=== PATIENT | male | born 1960 | race Caucasian/White ===

== ENCOUNTER 2020-06-27 13:58 | Inpatient (IN) | payer BC ==
[~2020-06-27] VITALS: Ht 213.4 cm; Wt 179.6 kg
--- NOTE | 2020-06-27 14:20 | NUR ---
IV LINE ESTABLISHED. BLOOD DRAWN ADN SENT TO LAB
[2020-06-27] MEDS ORDERED: AMLO10TA4 PO (14:35)
[2020-06-27] MEDS ORDERED: GLIM4TAB37 PO (14:35)
[2020-06-27] MEDS ORDERED: ATEN50TA PO (14:35)
[2020-06-27] MEDS ORDERED: HYDR25TA4 PO (14:35)
[2020-06-27] MEDS ORDERED: LOSA100T31 PO (14:35)
[2020-06-27] MEDS ORDERED: ASPI-1420 PO (14:35)
[2020-06-27] MEDS ORDERED: METF-442 PO (14:35)
[2020-06-27 14:37] LABS: BASOPHILS # (AUTO) 0.1 /CMM (0.0-0.2); BASOPHILS % (AUTO) 0.7 % (0.0-2.0); EOSINOPHILS % (AUTO) 2.1 % (0.0-6.0); HEMATOCRIT 41 % (39-51); HEMOGLOBIN 13.4 g/dL (13.5-17.5); LYMPHOCYTES # (AUTO) 3.5 /CMM (0.8-4.8); LYMPHOCYTES % (AUTO) 41.8 % (20.0-44.0); MEAN CORPUSCULAR HGB CONC 33 g/dl (31.0-36.0); MEAN CORPUSCULAR VOLUME 84 fL (80-96); MONOCYTES # (AUTO) 0.6 /CMM (0.1-1.30); MONOCYTES % (AUTO) 7.7 % (2.0-12.0); NEUTROPHILS % (AUTO) 47.7 % (43.0-81.0); PLATELET COUNT (AUTO) 293 /CMM (150-450); RED BLOOD CELL COUNT(AUTO) 4.91 MIL/uL (4.5-6.0); WHITE BLOOD COUNT (AUTO) 8.4 K/uL (4.3-11.0)
[2020-06-27 14:44] LABS: CALCIUM, SERUM 9.1 mg/dL (8.5-10.1); CARBON DIOXIDE 26 mmol/L (21-32); CHLORIDE 100 mmol/L (98-107); GLUCOSE 141 mg/dL (74-106); POTASSIUM 4.1 mmol/L (3.5-5.1); SODIUM SERUM 137 mmol/L (136-145); UREA NITROGEN, BLOOD 8 mg/dL (7-18)
[2020-06-27 14:57] LABS: B-TYPE NATRIURETIC PEPTIDE 11 PG/ML (0-125)
--- NOTE | 2020-06-27 16:23 | NUR ---
COVID SWAB SENT. PATIENT RESTING, NO DISTRESS NOTED.
[2020-06-27] MEDS ORDERED: ACETAMINOPHEN 325 MG TABLET PO PRN (19:00)
[2020-06-27] MEDS ORDERED: Z GUARD REMEDY 2 OZ OINT TP PRN (19:00)
[2020-06-27] MEDS ORDERED: MAG HYDROX/AL HYDROX/SIMETH 30 ML UDC PO PRN (19:00)
[2020-06-27] MEDS ORDERED: MAGNESIUM HYDROXIDE 30 ML UDC PO PRN (19:00)
[2020-06-27] MEDS ORDERED: ZOLPIDEM TARTRATE 5 MG TABLET PO PRN (19:00)
[2020-06-27] MEDS ORDERED: HYDROCODONE/APAP 5/325MG TABLET PO PRN (19:00)
[2020-06-27] MEDS ORDERED: ASPIRIN EC 81 MG TABLET.DR PO ONE (19:00)
[2020-06-27] MEDS ORDERED: ONDANSETRON HCL/PF 4 MG/2 ML VIAL IVP PRN (19:00)
--- NOTE | 2020-06-27 20:01 | NUR ---
ROOM ASSIGNMENT IS 304-1
--- NOTE | 2020-06-27 20:24 | NUR ---
ATTEMPTED TO GIVE REPORT. NURSE NOT AVAILABLE FOR REPORT
--- NOTE | 2020-06-27 20:37 | NUR ---
REPORT GIVEN TO JOVAN GAN FOR MALENA
[2020-06-27] MEDS: ENOXAPARIN SODIUM 40 MG/0.4 ML DISP.SYRIN SQ SCH ×2 (21:00→22:50)
[2020-06-27 21:30] VITALS: BP 151/95
--- NOTE | 2020-06-27 21:30 | NUR ---
LATHE PULLER NOTES PATIENT ARRIVED ON FLOOR AT 2130. PATIENT IS IN BED, AWAKE, ALERT AND ORIENTED X 4. BREATHING EVEN AND UNLABORED ON ROOM AIR. SHOWS NO SIGNS OF ACUTE RESPIRATORY DISTRESS, NO ACUTE PAIN. TELE MONITOR SR. IV ON RAC 18G ITS CLEAN DRY AND INTACT. SHOWS NO SIGNS OF INFILTRATION, NO REDNESS. PT REFUSED SKIN ASSESSMENT, DOES NOT WANT TO CHANGE INTO HOSPITAL GOWN. BELONGINGS CHECKLIST COMPLETED, AND ORIENTED TO STAFF AND ROOM. SAFETY PRECAUTIONS IN PLACE. BED IN LOWEST POSITION, LOCKED, AND CALL LIGHT KEPT WITHIN REACH. WILL CONTINUE TO MONITOR.
--- NOTE | 2020-06-27 21:33 | NUR ---
PT TRANSFERRED TO ROOM VIA ACLS PROTOCOL
[2020-06-27] MEDS ORDERED: LOVA40TA2 PO (22:29)
--- NOTE | 2020-06-27 22:50 | NUR ---
SINGING WAITER OR WAITRESS NOTES PATIENT REFUSED LOVENOX. EDUCATED PATIENT ON RISK AND BENEFITS OF MEDICATION. OPENED MEDICATIONS AND REQUIRED WASTING, MIGUEL ALDANA WITNESSED. WILL CONTINUE TO MONITOR.
[2020-06-27] MEDS ORDERED: INSU100V7 SQ (22:59)
[2020-06-27] MEDS ORDERED: DEXTROSE 50%-WATER 50 ML DISP.SYRIN IV PRN (23:30)
[2020-06-27] MEDS ORDERED: GLIMEPIRIDE 4 MG TABLET PO ONE (23:30)
[2020-06-27] MEDS ORDERED: ATENOLOL 50 MG TABLET PO ONE (23:30)
[2020-06-27] MEDS ORDERED: INSULIN REGULAR, HUMAN 100 UNIT/ML 3 ML VIAL SQ PRN (23:30)
[2020-06-27] MEDS ORDERED: METFORMIN 500 MG TABLET PO ONE (23:30)
--- NOTE | 2020-06-27 23:40 | NUR ---
SCENE AND LIGHTING DESIGN LECTURER NOTES CALLED [facility] FOR MED RECON, NOT AVAILABE AT THE TIME. SAID TO PUT IN ONE TIME ORDER FOR PT'S NIGHT TIME MEDICATION. PUT ONE TIME ORDER FOR ATENELOL, GLIMEPIDE, AND METFORMIN. PT RECEIVED MEDICATIONS. ALSO GOT ORDER FOR CPAP AND LANTUS. WILL CONTINUE TO MONITOR.
[2020-06-28] VITALS: BP 151/95
[2020-06-28 02:25] VITALS: BP 151/95
[2020-06-28 04:00] VITALS: BP 164/99
--- NOTE | 2020-06-28 04:30 | NUR ---
[facility] NOTES CONTACT MD FOR PRN BP MEDICATION. MD ASKED TO TAKE MANUAL BP, RESULT WAS 155/80. NO MEDICATION WAS GIVEN. WILL CONTINUE TO MONITOR.
[2020-06-28 06:47] LABS: BASOPHILS % (AUTO) 0.3 % (0.0-2.0); EOSINOPHILS % (AUTO) 3.5 % (0.0-6.0); HEMATOCRIT 39 % (39-51); HEMOGLOBIN 12.6 g/dL (13.5-17.5); LYMPHOCYTES # (AUTO) 3.3 /CMM (0.8-4.8); LYMPHOCYTES % (AUTO) 37.6 % (20.0-44.0); MEAN CORPUSCULAR HGB CONC 32 g/dl (31.0-36.0); MEAN CORPUSCULAR VOLUME 83 fL (80-96); MONOCYTES # (AUTO) 1.1 /CMM (0.1-1.30); NEUTROPHILS # (AUTO) 4.1 /CMM (1.8-8.9); NEUTROPHILS % (AUTO) 46.6 % (43.0-81.0); PLATELET COUNT (AUTO) 296 /CMM (150-450); RED BLOOD CELL COUNT(AUTO) 4.67 MIL/uL (4.5-6.0); WHITE BLOOD COUNT (AUTO) 8.8 K/uL (4.3-11.0)
[2020-06-28] MEDS: BLOOD SUGAR DIAGNOSTIC 1 EACH STRIP IN SCH ×2 (06:57→12:00)
--- NOTE | 2020-06-28 07:00 | NUR ---
SCHOOL NURSE NOTES PATIENT IS SITTING AT EDGE OF BED, AWAKE, ALERT AND ORIENTED X 4. BREATHING EVEN AND UNLABORED ON ROOM AIR. SHOWS NO SIGNS OF ACUTE RESPIRATORY DISTRESS, NO ACUTE PAIN. TELE MONITOR SR. IV ON RAC 18G ITS CLEAN DRY AND INTACT. SHOWS NO SIGNS OF INFILTRATION, NO REDNESS. ALL DUE MEDICATIONS GIVEN. ALL NEEDS ATTENDED TO. SAFETY PRECAUTIONS IN PLACE. BED IN LOWEST POSITION, LOCKED, AND CALL LIGHT KEPT WITHIN REACH. WILL ENDORSE TO ONCOMING NURSE.
[2020-06-28 07:05] LABS: CALCIUM, SERUM 9.4 mg/dL (8.5-10.1); CREATININE 0.9 mg/dL (0.6-1.3); MAGNESIUM 2.1 mg/dL (1.8-2.4); PHOSPHORUS 4.2 mg/dL (2.5-4.9); POTASSIUM 3.7 mmol/L (3.5-5.1)
[2020-06-28 07:09] LABS: THYROID STIMULATING HORMONE 1.419 uIU/mL (0.358-3.74)
[2020-06-28] MEDS ORDERED: INSULIN GLARGINE, 100 UNIT/ML CARTRIDGE SQ SCH ×2 (07:30→09:00)
[2020-06-28] MEDS ORDERED: PANTOPRAZOLE 40 MG TABLET.DR PO SCH (07:30)
--- NOTE | 2020-06-28 07:30 | NUR ---
MEDICAL DEVICE NOTES CONTACTED AND LEFT MESSAGE FOR DR. CARRANZA TO UPDATE REGARDING ADMISSION IN HOSPITAL. DR. ROUSE [phone]
--- NOTE | 2020-06-28 07:35 | NUR ---
ms rn received on bed, awake,alert,oriented x4,not in any form of distress,respirations even and unlabored,no sob noted, lungs are diminish,abdomen soft,positive bowel sounds,denies pain at this time,all needs attended.
[2020-06-28 08:00] VITALS: BP 147/82
--- NOTE | 2020-06-28 10:00 | NUR ---
ms rn was seen by dr. radha marie/ orders made and carried out.
--- NOTE | 2020-06-28 11:00 | NUR ---
ms rocha was seen by dr. groves w/ isabel for cta.
[2020-06-28 12:00] VITALS: BP 149/74
--- NOTE | 2020-06-28 12:00 | NUR ---
ms rn refused to take bs - patient went down for the procedure.
[2020-06-28] MEDS ORDERED: IOHEXOL-350 100 ML VIAL IV ONE (12:55)
[2020-06-28] MEDS ORDERED: CT SWABBABLE VALVE TRANS SET 1 EA INFUS.SET MC ONE (12:55)
[2020-06-28] MEDS ORDERED: IV NS 0.9% 250 ML IV ONE (12:55)
[2020-06-28] MEDS: METOPROLOL TARTRATE INJ 5 MG/5 ML AMPUL IVP PRN ×10 (13:05→13:50)
[2020-06-28] MEDS ORDERED: NITROGLYCERIN 0.4 MG/TAB BOTTLE ONE (13:06)
[2020-06-28] MEDS ORDERED: METOPROLOL TARTRATE INJ 5 MG/5 ML AMPUL ONE ×3 (13:07→13:34)
[2020-06-28] MEDS ORDERED: NITROGLYCERIN 0.4 MG/TAB BOTTLE SL ONE ×2 (13:30→14:30)
--- NOTE | 2020-06-28 13:30 | NUR ---
ms rn patient came back from [facility], ate lunch already, refused to check sugar because already ate.
[2020-06-28] MEDS ORDERED: PANT40TA2 PO (14:25)
[2020-06-28] MEDS ORDERED: ASPIRIN EC 81 MG TABLET.DR PO SCH (14:30)
[2020-06-28] MEDS ORDERED: HYDROCHLOROTHIAZIDE 25 MG TABLET PO SCH (14:30)
[2020-06-28] MEDS ORDERED: GLIMEPIRIDE 4 MG TABLET PO SCH (14:30)
[2020-06-28] MEDS ORDERED: ATENOLOL 50 MG TABLET PO SCH (14:30)
[2020-06-28] MEDS ORDERED: LOSARTAN POTASSIUM 50 MG TABLET PO SCH (14:30)
--- NOTE | 2020-06-28 15:00 | NUR ---
ms rn refusing due meds, patient will take his home meds at home, ,wants to go home now.
[2020-06-28 16:00] VITALS: BP 121/80
--- NOTE | 2020-06-28 16:00 | NUR ---
ms rn texted dr. groves, needs to see cta results first.
--- NOTE | 2020-06-28 17:00 | NUR ---
ms rn refusing due meds, will take meds at home. patient's rx fax to pharmacy.
--- NOTE | 2020-06-28 17:20 | NUR ---
ms pattern wheel maker instructions given, patient went home.
[2020-06-29] MEDS ORDERED: INSULIN GLARGINE, 100 UNIT/ML CARTRIDGE SQ SCH (07:30)
[2020-06-29] MEDS ORDERED: AMLODIPINE BESYLATE 10 MG TABLET PO SCH (09:00)
[2020-06-29] MEDS ORDERED: ATORVASTATIN 10 MG TABLET PO SCH (09:00)
== END 2020-06-28 17:00 | disposition home or self-care (01) | DRG 392 ==
LOC: ER 14:07 → TELE 21:11 → MED 06-28 12:03
PROVIDERS: ADMIT Student in an Organized Health Care Education/Training Program; ATTEND Student in an Organized Health Care Education/Training Program
DX: K21.9 Gastro-esophageal reflux disease without esophagitis (principal); G47.33 Obstructive sleep apnea (adult) (pediatric); E66.01 Morbid (severe) obesity due to excess calories; Z68.39 Body mass index [BMI] 39.0-39.9, adult; E11.9 Type 2 diabetes mellitus without complications; I10 Essential (primary) hypertension; Z79.84 Long term (current) use of oral hypoglycemic drugs; R07.89 Other chest pain
CPT/HCPCS: 36415; 71045-TC; 75574; 80048-TC; 80061-TC; 82962-TC; 83735-TC; 83880; 84100-TC; 84443-TC; 84484-TC; 85025-TC; 85378-TC; 87081-TC; 93307-TC; C9803; G0378; J1650; J1815; J3490; J7050; Q9967